=== PATIENT | male | born 1975 | race Caucasian/White ===

== ENCOUNTER 2016-10-09 15:58 | Emergency (ER) | payer BC ==
[~2016-10-09] VITALS: Ht 175.3 cm; Wt 97.0 kg
[2016-10-09 16:00] VITALS: BP 137/98; PULSE 81; RESP 16; TEMP 97.9; O2SAT 99
--- NOTE | 2016-10-09 16:22 | PD ---
HPI Chief Complaint: Laceration/Skin Injury Time Seen by Provider: 16:22 Travel History International Travel<30 days: No Contact w/Intl Traveler<30days: No Traveled to known affect area: No History of Present Illness HPI 40-year-old male presents to the emergency Department with complaint of laceration to his left thumb. He obtained a laceration while cutting bamboo with a pocket knife. He is up-to-date on his tetanus vaccination. Denies paresthesias, loss of sensation, decreased range of motion, decreased strength to the affected finger. Has applied pressure to control bleeding. Has not taken any medications to alleviate his symptoms. No known allergies. Denies significant past medical history. No other modifying factors or associated signs and symptoms. PFSH Past Medical History Medical History: Denies Significant Hx Past Surgical History Surgical History: No Previous Surgery Social History Alcohol Use: Yes (OCC) Tobacco Use: No Substance Use: No Allergies-Medications (Allergen,Severity, Reaction): Coded Allergies: No Known Allergies (Unverified , 10/09/16) Reported Meds & Prescriptions Reported Meds & Active Scripts Active Ibuprofen 800 Mg Tab 800 Mg PO Q6HR PRN Keflex (Cephalexin) 500 Mg Cap 500 Mg PO Q8H 7 Days Review of Systems Except as stated in HPI: all other systems reviewed are Neg Physical Exam Narrative GENERAL: Well-nourished, well-developed male patient, in no acute distress SKIN: Warm and dry. Dorsal aspect of left thumb at the base just over the MCP joint with approximately 2 cm laceration; thumb is with full range of motion at all finger joints with extension and flexion; with good opposition; less than 3 second cap refill; sensory intact. Left upper extremity is supple and non- tense with 2+ radial pulse and sensory intact and without erythema or edema. HEAD: Atraumatic. Normocephalic. EYES: Pupils equal and round. No scleral icterus. No injection or drainage. ENT: Mucosa pink and moist. Airway patent. NECK: Trachea midline. CARDIOVASCULAR: Regular rate. RESPIRATORY: No accessory muscle use. GASTROINTESTINAL: Flat. MUSCULOSKELETAL: No obvious deformities. No clubbing. No cyanosis. No edema. NEUROLOGICAL: Awake and alert. Oriented 3. No obvious cranial nerve deficits. Motor grossly within normal limits. Normal speech. PSYCHIATRIC: Appropriate mood and affect; insight and judgment normal. Data Data Last Documented VS Vital Signs Date Time Temp Pulse Resp B/P Pulse Ox O2 Delivery O2 Flow Rate FiO2 10/09/16 16:00 97.9 81 16 137/98 99 Orders Lidocaine 1% Inj (50 Ml) (Xylocaine 1% I (10/09/16 16:30) [facility] Medical Decision Making Medical Screen Exam Complete: Yes Emergency Medical Condition: Yes Medical Record Reviewed: Yes Differential Diagnosis Laceration, contusion, abrasion Narrative Course 40-year-old male with laceration to the base of his left thumb over the MCP joint. See my procedure note for laceration repair. Patient up-to-date on tetanus vaccination. Keflex and ibuprofen prescribed for home. Patient verbalizes understanding and agreement with treatment plan. Patient is medically cleared and stable for discharge. Discussed reasons to return to the emergency department. Instructed patient to follow up with primary care provider. Patient agrees with treatment plan. The patients vital signs are stable and the patient is stable for outpatient follow-up and treatment. Patient discharged home, stable and in no acute distress. Procedures Procedure Narrative LACERATION LOCATION: Dorsal aspect of left thumb over the MCP joint LENGTH: 2 cm NUMBER OF STITCHES/REYNOLD: 5 stitches REPAIR: The area of the laceration was prepped with Betadine and sterilely draped. The laceration was infiltrated with 1% lidocaine. The wound was copiously irrigated and explored without evidence of foreign body, tendon injury or neurovascular injury. The wound was closed using 4-0 Prolene. This was a single layer repair. A sterile dressing was applied. The patient was advised to keep the dressing clean and dry. Patient tolerated the procedure well. Diagnosis Primary Impression: Laceration of left thumb Qualified Code: S61.012A - Laceration of left thumb, initial encounter Referrals: Primary Care Physician Patient Instructions: Finger Laceration (ED), General Instructions Departure Forms: Tests/Procedures, Work Release Enter return to work date: Oct 10, 2016 Additional Instructions: Keep area clean and dry Limit thumb activity to decrease risk of sutures coming undone Ibuprofen or Tylenol as directed and as needed for pain and inflammation Ice pack to area as needed to decrease pain Return to the emergency department or follow-up with primary care provider in 7- 10 days for suture removal Follow up with primary care provider Return to the emergency department immediately with worsening of symptoms, particularly if reddened streaks up or down the affected extremity from the suture site, fever, numbness/tingling in the affected extremity, loss of sensation in the affected extremity, severe swelling of the affected Med/Other Pt SpecificInfo: Prescription(s) given Scripts Ibuprofen 800 Mg [id number] Mg PO Q6HR PRN (PAIN) #30 TAB Ref 0 Prov:Valeria Thompson 10/09/16 Cephalexin (Keflex)500 Mg [id number] Mg PO Q8H 7 Days Ref 0 Prov:Valeria Thompson 10/09/16 Disposition: 01 DISCHARGE HOME Condition: Stable Valeria Thompson Oct 09, 2016 16:22 Valeria Thompson Oct 09, 2016 16:22
[2016-10-09] MEDS ORDERED: IBUP800T23 PO (16:23)
[2016-10-09] MEDS ORDERED: CEPH-460 PO (16:23)
[2016-10-09] MEDS ORDERED: LIDOCAINE HCL 1% 50 ML VIAL INFIL ONE (16:30)
== END 2016-10-09 17:58 | disposition home or self-care (01) ==
LOC: NEPB 15:58
DX: S61.012A Laceration without foreign body of left thumb without damage to nail, initial encounter (principal); W26.0XXA Contact with knife, initial encounter; Y93.89 Activity, other specified
CPT/HCPCS: 12001